=== PATIENT | female | born 1970 | race Hispanic/Latino ===

== ENCOUNTER 2022-02-04 07:44 | Emergency (ER) | payer SELFPAY ==
[2022-02-04 08:14] LABS: Absolute Lymphocytes (CBC) 1.9 K/uL (0.7-4.9); Hematocrit 36.6 % (36.0-45.0); Lymphocytes % 28.8 % (15.3-44.8); MCV 94.7 fL (80-100); RBC Red Blood Cell Count 3.86 M/uL (3.86-4.86)
[2022-02-04 08:32] LABS: Potassium 3.4 mmol/L (3.5-5.1); Troponin High Sensitivity 4.4 pg/mL (<58.9)
[2022-02-04] MEDS ORDERED: DIAZEPAM 10 MG/2 ML INJ SYRINGE ONE (08:32)
[2022-02-04] MEDS ORDERED: ONDANSETRON 4 MG/2 ML VIAL ONE (08:33)
--- NOTE | 2022-02-04 08:34 | RAD REPORT ---
EXAM DESCRIPTION: CT - Head Brain Wo Cont - 02/04/2022 8:29 am CLINICAL HISTORY: dizziness Headache, drowsiness COMPARISON: No comparisons TECHNIQUE: All CT scans are performed using dose optimization technique as appropriate and may inclu de automated exposure control or mA/KV adjustment according to patient size. FINDINGS: No intracranial hemorrhage, hydrocephalus or extra-axial fluid collection.No areas of brai n edema or evidence of midline shift. The paranasal sinuses and mastoids are clear. The calvarium is intact. IMPRESSION: No acute intracranial abnormality.
--- NOTE | 2022-02-04 09:21 | RAD REPORT ---
EXAM DESCRIPTION: RAD - Chest Single View - 02/04/2022 8:26 am CLINICAL HISTORY: CHEST PAIN Chest pain. COMPARISON: No comparisons FINDINGS: Portable technique limits examination quality. The lungs are grossly clear. The heart is normal in size. No displaced fractures. IMPRESSION: No acute intrathoracic process suspected.
[2022-02-04] MEDS ORDERED: MECLIZINE HCL 12.5 MG TAB ONE (10:38)
--- NOTE | 2022-02-04 11:53 | ER ---
Nurse's Notes [facility] Name: Kathy Hernandez Age: 51 yrs Sex: Female : 1970 Arrival Date: 02/04/2022 Time: 07:45 Bed 16 Private MD: Diagnosis: Chest pain, unspecified;Vertigo Presentation: 02/04 07:51 Chief complaint: Patient states: interment l chest pain x 2wks. worse this am with jh6 nausea and dizziness. reports that dizziness is worse when moving head side to side. Coronavirus screen: Vaccine status: Client denies travel out of the [place] in the last 14 days. Ebola Screen: Patient negative for fever greater than or equal to 101.5 degrees Fahrenheit, and additional compatible Ebola Virus Disease symptoms Patient denies exposure to infectious person. Patient denies travel to an Ebola-affected area in the 21 days before illness onset. Initial Sepsis Screen: Does the patient meet any 2 criteria? No. Patient's initial sepsis screen is negative. Does the patient have a suspected source of infection? No. Patient's initial sepsis screen is negative. Risk Assessment: Do you want to hurt yourself or someone else? Patient reports no desire to harm self or others. Onset of symptoms was February 04, 2022. 07:51 Method Of Arrival: Ambulatory [facility] 07:51 Acuity: LIZ 2 jh6 07:53 Acuity: LIZ 3 jh6 Triage Assessment: 07:54 General: Appears uncomfortable, Behavior is calm, cooperative. Pain: Complains of pain jh6 in anterior aspect of left upper chest Pain currently is 4 out of 10 on a pain scale. Quality of pain is described as heavy, Pain began suddenly, Is intermittent. Cardiovascular: Reports chest pain, nausea, Capillary refill < 3 seconds Clubbing of nail beds is absent JVD is absent Thorax is convex Patient's skin is warm and dry. Historical: - Allergies: 07:53 No Known Allergies; jh6 - PMHx: 07:53 Diabetes mellitus; jh6 - Immunization history:: Adult Immunizations up to date. - Social history:: Smoking status: Patient denies any tobacco usage or history of. Screenin:32 Abuse screen: Denies threats or abuse. Nutritional screening: No deficits noted. vg1 Tuberculosis screening: No symptoms or risk factors identified. Fall Risk IV access (20 points). Assessment: 07:56 General:. General: Appears uncomfortable, Behavior is calm. Pain: Complains of pain in tp1 chest Pain radiates to left side of neck and to the left ribs Pain currently is 5 out of 10 on a pain scale. Quality of pain is described as pressure in the chest with sharp pain in the ribs and neck Pain began 2 weeks Is intermittent. Neuro: Level of Consciousness is awake, alert, obeys commands, Oriented to person, place, time, situation, Appropriate for age. Cardiovascular: Reports chest pain, Denies shortness of breath. Cardiovascular: Reports dizziness and states " almost blacked out this morning". Respiratory: Airway is patent Respiratory effort is even, unlabored. Respiratory: Reports having cough and congestion about two weeks ago, denies symptoms now. GI: Reports nausea, Patient currently denies vomiting. : No signs and/or symptoms were reported regarding the genitourinary system. EENT: No signs and/or symptoms were reported regarding the EENT system. Derm: Skin is clammy, diaphoretic. Musculoskeletal: Circulation, motion, and sensation intact. 08:56 Reassessment: Patient appears in no apparent distress at this time. Patient and/or tp1 family updated on plan of care and expected duration. Pain level reassessed. Patient is alert, oriented x 3, equal unlabored respirations, skin warm/dry/pink. Patient states feeling better. Pain: Complains of pain in chest Pain currently is 3 out of 10 on a pain scale. Quality of pain is described as pressure. 09:58 Reassessment: Patient appears in no apparent distress at this time. No changes from vg1 previously documented assessment. Patient and/or family updated on plan of care and expected duration. Pain level reassessed. Patient is alert, oriented x 3, equal unlabored respirations, skin warm/dry/pink. rates pain 2/10. 10:52 Reassessment: Patient appears in no apparent distress at this time. No changes from vg1 previously documented assessment. Patient and/or family updated on plan of care and expected duration. Pain level reassessed. Patient is alert, oriented x 3, equal unlabored respirations, skin warm/dry/pink. 11:52 Reassessment: Patient appears in no apparent distress at this time. No changes from vg1 previously documented assessment. Patient and/or family updated on plan of care and expected duration. Pain level reassessed. Patient is alert, oriented x 3, equal unlabored respirations, skin warm/dry/pink. Vital Signs: 07:51 BP 155 / 79; Pulse 74; Resp 16; Temp 97.7(TE); Pulse Ox 100% ; Weight 69.4 kg; Height 5 6 ft. 3 in. (160.02 cm); Pain 4/10; 08:58 BP 124 / 72; Pulse 70; Resp 15; Pulse Ox 99% on R/A; Pain 3/10; tp1 09:58 BP 118 / 80; Pulse 66; Resp 16; Pulse Ox 98% on R/A; vg1 10:52 BP 111 / 63; Pulse 67; Resp 15; Pulse Ox 99% ; vg1 07:51 Body Mass Index 27.10 (69.40 kg, 160.02 cm) 6 ED Course: 07:45 Patient arrived in ED. as 07:48 Josiah Roca DO is Attending Physician. ms3 07:53 Triage completed. [facility] 07:54 Arm band placed on left wrist. Patient placed in the treatment room, on a stretcher, on 6 manager monitoring, on pulse oximetry. 08:00 William Lagunas PA is PHCP. [facility] 08:00 Patient has correct armband on for positive identification. Placed in gown. Bed in low vg1 position. Call light in reach. Side rails up X2. Adult w/ patient. Client placed on continuous cardiac and pulse oximetry monitoring. NIBP monitoring applied. 08:00 Patient maintains SpO2 saturation greater than 95% on room air. vg1 08:04 Ingrid Zaidi, RN is Primary Nurse. vg1 08:28 XRAY Chest (1 view) In Process Unspecified. EDMS 08:31 CT Head Brain wo Cont In Process Unspecified. EDMS 11:22 role handed off by Monalisa Merrill bd 11:52 Jose Hernandez MD is Referral Physician. jmm 11:52 Imelda Gustafson MD is Referral Physician. jmm 12:32 No provider procedures requiring assistance completed. IV discontinued, intact, vg1 bleeding controlled, No redness/swelling at site. Pressure dressing applied. Administered Medications: 08:33 Drug: Zofran (Ondansetron) 4 mg Route: IVP; Site: left antecubital; tp1 08:58 Follow up: Response: No adverse reaction; Marked relief of symptoms tp1 08:34 Drug: Valium (diazepam) 2 mg Route: IVP; Site: left antecubital; tp1 08:57 Follow up: Response: No adverse reaction; Marked relief of symptoms tp1 10:30 Drug: Meclizine 50 mg Route: PO; vg1 12:31 Follow up: Response: No adverse reaction; Marked relief of symptoms vg1 Medication: 12:32 VIS not applicable for this client. vg1 Outcome: 11:52 Discharge ordered by . tara 12:32 Discharged to home ambulatory, with family. vg1 12:32 Condition: good 12:32 Discharge instructions given to patient, Instructed on discharge instructions, follow up and referral plans. medication usage, Demonstrated understanding of instructions, follow-up care, medications, Prescriptions given X 1. 12:33 Patient left the ED. vg1 Signatures: Dispatcher [employer] EDMS Valeria Valladares Joel, PA PA jmm Martinez, Amelia as Garcia, Victoria, RN RN vg1 Josiah Roca DO DO ms3 Anabel Emanuel RN RN jh6 Monalisa Merrill, RN RN tp1
--- NOTE | 2022-02-04 11:53 | EDPHYS ---
Physician Documentation [facility] Name: Kathy Hernandez Age: 51 yrs Sex: Female : 1970 Arrival Date: 02/04/2022 Time: 07:45 Bed 16 Private MD: ED Physician Josiah Roca HPI: 02/04 08:00 This 51 yrs old Female presents to ER via Ambulatory with complaints of Chest jmm Pain, Syncope, Dizziness. 08:00 Onset: acutely, this morning. jmm 11:45 Associated signs and symptoms: Pertinent positives: dizziness. The chest pain is jmm described as aching. This is a 51 year old female with a history of dm that presents to the ED with complaints of chest pain beginning approx 2 week ago with acute onset dizziness beginning this morning with nausea. Symptoms are worsened by moving her head. . Historical: - Allergies: 07:53 No Known Allergies; jh6 - PMHx: 07:53 Diabetes mellitus; 6 - Immunization history:: Adult Immunizations up to date. - Social history:: Smoking status: Patient denies any tobacco usage or history of. ROS: 11:45 Constitutional: Negative for fever, chills, and weight loss. jmm 11:45 Cardiovascular: Positive for chest pain. 11:45 Neuro: Positive for dizziness. 11:45 All other systems are negative. Exam: 07:49 ECG was reviewed by the Attending Physician. ms3 11:45 Constitutional: This is a well developed, well nourished patient who is awake, alert, jmm and in no acute distress. Head/Face: atraumatic. Eyes: EOMI, no conjunctival erythema appreciated ENT: Moist Mucus Membranes Neck: Trachea midline, Supple Chest/axilla: Normal chest wall appearance and motion. Cardiovascular: Regular rate and rhythm. No edema appreciated Respiratory: Normal respirations, no respiratory distress appreciated Abdomen/GI: Non distended Back: Normal ROM Skin: General appearance color normal MS/ Extremity: Moves all extremities, no obvious deformities appreciated, no edema noted to the lower extremities 11:45 Eyes: Nystagmus: nystagmus with fast component noted, bilaterally. 11:45 Neuro: Orientation: is normal, Mentation: is normal, Memory: is normal, Cerebellar function: normal finger to nose testing, Gait: is steady, at a normal pace. 11:45 Psych: Behavior/mood is pleasant, cooperative, anxious. Vital Signs: 07:51 BP 155 / 79; Pulse 74; Resp 16; Temp 97.7(TE); Pulse Ox 100% ; Weight 69.4 kg; Height 5 [facility] ft. 3 in. (160.02 cm); Pain 4/10; 08:58 BP 124 / 72; Pulse 70; Resp 15; Pulse Ox 99% on R/A; Pain 3/10; tp1 09:58 BP 118 / 80; Pulse 66; Resp 16; Pulse Ox 98% on R/A; vg1 10:52 BP 111 / 63; Pulse 67; Resp 15; Pulse Ox 99% ; vg1 07:51 Body Mass Index 27.10 (69.40 kg, 160.02 cm) 6 MDM: 08:03 Patient medically screened. [facility] 11:47 Data reviewed: vital signs, nurses notes. Counseling: I had a detailed discussion with tara the patient and/or guardian regarding: the historical points, exam findings, and any diagnostic results supporting the discharge/admit diagnosis, lab results, radiology results, the need for outpatient follow up, to return to the emergency department if symptoms worsen or persist or if there are any questions or concerns that arise at home. ED course: Labs unremarkable. Patient feels much better. Dizziness has decreased. Patient able to ambulate without difficulty. Advised to follow up with cardio and ent for further evaluation. Patient otherwise given strict return precautions. Patient understood and agrees with the plan of care. . 02/04 07:49 Order name: Basic Metabolic Panel; Complete Time: 08:45 ms3 02/04 07:49 Order name: CBC with Diff; Complete Time: 08:45 ms3 02/04 07:49 Order name: Magnesium; Complete Time: 08:45 ms3 02/04 07:49 Order name: Troponin HS; Complete Time: 08:45 ms3 02/04 07:49 Order name: XRAY Chest (1 view); Complete Time: 09:24 ms3 02/04 10:18 Order name: D-Dimer; Complete Time: 11:27 [facility] 02/04 07:49 Order name: EKG; Complete Time: 07:49 ms3 02/04 07:49 Order name: Cardiac monitoring; Complete Time: 08:04 ms3 02/04 07:49 Order name: EKG - Nurse/Tech; Complete Time: 08:04 ms3 02/04 07:49 Order name: IV Saline Lock; Complete Time: 08:04 ms3 02/04 08:12 Order name: CT Head Brain wo Cont; Complete Time: 08:45 jmm 02/04 07:49 Order name: Labs collected and sent; Complete Time: 08:04 ms3 02/04 07:49 Order name: O2 Per Protocol; Complete Time: 08:04 ms3 02/04 07:49 Order name: O2 Sat Monitoring; Complete Time: 08:04 ms3 EC:49 Rate is 69 beats/min. Rhythm is regular. QRS [place] is Normal. MS interval is normal. ms3 Clinical impression: NSR w/ Non-specific ST/T Changes. Interpreted by me. Reviewed by me. Administered Medications: 08:33 Drug: Zofran (Ondansetron) 4 mg Route: IVP; Site: left antecubital; tp1 08:58 Follow up: Response: No adverse reaction; Marked relief of symptoms tp1 08:34 Drug: Valium (diazepam) 2 mg Route: IVP; Site: left antecubital; tp1 08:57 Follow up: Response: No adverse reaction; Marked relief of symptoms tp1 10:30 Drug: Meclizine 50 mg Route: PO; vg1 12:31 Follow up: Response: No adverse reaction; Marked relief of symptoms vg1 Disposition: 02/05 09:48 Co-signature as Attending Physician, Josiah MICHELLE was immediately available on-site ms3 in the Emergency Department for consultation in the care of the patient.. Disposition Summary: 02/04/22 11:52 Discharge Ordered Location: Home jmm Condition: Stable jmm Diagnosis - Chest pain, unspecified jmm - Vertigo jmm Followup: jmm - With: Jose Hernandez MD - When: 2 - 3 days - Reason: Recheck today's complaints, Continuance of care, Re-evaluation by your physician Followup: jmm - With: Imelda Gustafson MD - When: 2 - 3 days - Reason: Recheck today's complaints, Continuance of care, Re-evaluation by your physician Discharge Instructions: - Discharge Summary Sheet jmm - Nonspecific Chest Pain, Adult jmm - Vertigo jmm - How to Perform the Nasrin Maneuver jmm Forms: - Medication Reconciliation Form [facility] - Thank You Letter jmm - Antibiotic Education [facility] - Prescription Opioid Use [facility] Prescriptions: - Meclizine 25 mg Oral Tablet - take 1 tablet by ORAL route every 8 hours As needed; 30 tablet; Refills: 0, [facility] Product Selection Permitted Signatures: Dispatcher [employer] William Hernandez PA PA jmm Garcia, Victoria RN RN vg1 Josiah Roca DO DO ms3 Anabel Emanuel RN RN jh6 Monalisa Merrill RN RN tp1 Corrections: (The following items were deleted from the chart) 02/04 11:46 08:00 The patient or guardian reports chest pain that is located primarily in the [facility] substernal area, [facility]
[2022-02-04 12:38] VITALS: TEMP 97.7
[2022-02-04 12:43] VITALS: BP 111/63; O2SAT 99
--- NOTE | 2022-02-05 08:50 | EKG ---
Test Date: 2022-02-04 Test Time: 07:49:40 [employer] Supervisor: JAZMINE MEASUREMENT RESULTS: Intervals: Rate: 69 NH: 146 QRSD: 84 QT: 384 QTc: 411 [place]: P: 65 NH: 146 QRS: -16 T: 18 INTERPRETIVE STATEMENTS: Normal sinus rhythm Nonspecific T wave abnormality Abnormal ECG No previous ECG available for comparison Electronically Signed On 02-05-22 08:47:10 CDT by Kris Erwin
== END 2022-02-04 12:33 | disposition home or self-care (01) ==
LOC: ER 07:44
DX: R07.9 Chest pain, unspecified (principal); R42 Dizziness and giddiness; E11.9 Type 2 diabetes mellitus without complications
CPT/HCPCS: 36415; 70450; 71045; 80048; 83735; 84484; 85025; 85379; 93005; J2405; J3360; J8597